=== PATIENT | female | born 1950 | race Caucasian/White ===

== ENCOUNTER 2019-10-26 18:54 | Emergency (ER) | payer MEDICARE, OTHER ==
[~2019-10-26] VITALS: Ht 172.7 cm; Wt 90.7 kg
--- OUTSIDE RECORDS SUMMARY | ~2019-10-26 | XMS | Clinical Summary ---
Demographics + + + | Address | [address] | | | [place] [address] | + + + | Home Phone | | + + + | Preferred Language | Unknown | + + + | Marital Status | | + + + | Alevism Affiliation | Unknown | + + + | Race | Unknown | + + + | Ethnic Group | Unknown | + + + Author + + + | Author | [facility] | | | and [place] | + + + | Organization | [facility] | | | and [place] | + + + | Address | Unknown | + + + | Phone | Unavailable | + + + Support + + +---------+ + | Name | Relationship | Address | Phone | + + +---------+ + | Ralph Cintron | ECON | Unknown | | + + +---------+ + Care Team Providers + +------+ + | Care Career Information Specialist Name | Role | Phone | + +------+ + | Lai Ibarra DO | PCP | | + +------+ + Allergies No Known Allergies Medications + + + +---------+------+------+-------+ | Medication | Sig | Dispensed | Refills | Star | End | Statu | | | | | | t | Date | s | | | | | | Date | | | + + + +---------+------+------+-------+ | sertraline | | | 0 | 10/0 | | Activ | | (ZOLOFT) 100 mg | | | | 4/20 | | e | | tablet | | | | 15 | | | + + + +---------+------+------+-------+ | BYSTOLIC 10 MG | | | 0 | 10/0 | | Activ | | tablet | | | | 5/20 | | e | | | | | | 15 | | | + + + +---------+------+------+-------+ | atorvaSTATin | | | 0 | 08/0 | | Activ | | (LIPITOR) 10 mg | | | | 5/20 | | e | | tablet | | | | 15 | | | + + + +---------+------+------+-------+ | | | | 0 | 07/1 | | Activ | | HYDROcodone-acetamin | | | | 0/20 | | e | | ophen (NORCO) 10-325 | | | | 15 | | | | mg per tablet | | | | | | | + + + +---------+------+------+-------+ | ibuprofen (ADVIL) | Advil 200 mg tablet | | 0 | | | Activ | | 200 mg tablet | Take 1 tablet every | | | | | e | | | 6 hours by oral | | | | | | | | route. OTC PRN AD | | | | | | + + + +---------+------+------+-------+ | estrogens, | Apply 1gm to vagina | 30 g | 3 | 10/0 | | Activ | | conjugated, | daily x 2 weeks then | | | 9/20 | | e | | (PREMARIN) 0.625 | 1gm once weekly | | | 18 | | | | mg/g vaginal cream | | | | | | | + + + +---------+------+------+-------+ Active Problems + + + | Problem | Noted Date | + + + | Abnormal weight gain | 08/17/2018 | + + + | Bursitis of knee | 08/17/2018 | + + + | Chronic pain | 08/17/2018 | + + + | Fatigue | 08/17/2018 | + + + | Hallux valgus with bunions | 08/17/2018 | + + + | Hand pain | 08/17/2018 | + + + | Second degree burn of forearm | 08/17/2018 | + + + | Snapping thumb syndrome | 08/17/2018 | + + + | Open wound of finger | 08/17/2018 | + + + | Stress | 08/24/2013 | + + + | Bunion | 03/23/2013 | + + + | Chronic interstitial cystitis | 01/24/2013 | + + + | Pyuria | 12/09/2012 | + + + | Arthritis of knee | 09/22/2012 | + + + | Vitamin D deficiency | 06/03/2012 | + + + | Neck sprain | 03/23/2012 | + + + | Neck pain | 03/23/2012 | + + + | Painful mouth | 03/23/2012 | + + + | Allergic rhinitis due to pollen | 06/19/2011 | + + + | Knee pain | 05/31/2010 | + + + | Diarrhea | 01/30/2010 | + + + | Female stress incontinence | 12/12/2009 | + + + | Dysuria | 10/22/2009 | + + + | Osteoarthrosis | 09/20/2009 | + + + | Hyperhidrosis | 04/18/2009 | + + + | Menopausal symptom | 04/18/2009 | + + + | Benign hypertension | 03/20/2009 | + + + | Generalized anxiety disorder | 03/20/2009 | + + + | Irritable bowel syndrome | 03/20/2009 | + + + | Mixed hyperlipidemia | 03/20/2009 | + + + | Insomnia | 03/20/2009 | + + + | Urinary tract infectious disease | 03/20/2009 | + + + Family History + + +------+ + | Medical History | Relation | Name | Comments | + + +------+ + | Multiple sclerosis | Mother | | | + + +------+ + | Diabetes | Sister | | | + + +------+ + | Prostate cancer | Neg Hx | | | + + +------+ + + +------+ + + | Relation | Name | Status | Comments | + +------+ + + | Daughter | | Alive | | + +------+ + + | Father | | | | + +------+ + + | Mother | | | | + +------+ + + | Sister | | Alive | | + +------+ + + Social History + +-------+ +--------+------+ | Tobacco Use | Types | Packs/Day | Years | Date | | | | | Used | | + +-------+ +--------+------+ | Never Smoker | | | | | + +-------+ +--------+------+ + +---+---+---+ | Smokeless Tobacco: | | | | | Never Used | | | | + +---+---+---+ + + +---------+ + | Alcohol Use | Drinks/Week | oz/Week | Comments | + + +---------+ + | No | | | | + + +---------+ + + + + | Sex Assigned at | Date Recorded | | | | + + + | Not on file | | + + + + + + + | Job Start Date | Occupation | Industry | + + + + | Not on file | Not on file | Not on file | + + + + + + + + | Travel History | Travel Start | Travel End | + + + + + + | No recent travel history available. | + + Last Filed Vital Signs + + + + + | Vital Sign | Reading | Time Taken | Comments | + + + + + | Blood Pressure | 140/80 | 01/05/2019 3:30 PM | | | | | PST | | + + + + + | Pulse | 64 | 01/05/2019 3:30 PM | | | | | PST | | + + + + + | Temperature | 36.3 C (97.4 F) | 08/22/2015 2:19 PM | | | | | PDT | | + + + + + | Respiratory Rate | 14 | 01/05/2019 3:30 PM | | | | | PST | | + + + + + | Oxygen Saturation | - | - | | + + + + + | Inhaled Oxygen | - | - | | | Concentration | | | | + + + + + | Weight | 97.4 kg (214 lb 11.7 | 01/05/2019 3:30 PM | | | | oz) | PST | | + + + + + | Height | 172.7 cm (5' 8") | 01/05/2019 3:30 PM | | | | | PST | | + + + + + | Body Mass Index | 32.65 | 01/05/2019 3:30 PM | | | | | PST | | + + + + + Plan of Treatment + + + + + | Health Maintenance | Due Date | Last Done | Comments | + + + + + | Hepatitis C | | | | | Screening | 2 | | | + + + + + | Vaccine: | | | | | Dtap/Tdap/Td (1 - | 1 | | | | Tdap) | | | | + + + + + | Colorectal Cancer | | | | | Screening | 2 | | | | (Colonoscopy) | | | | + + + + + | Vaccine: Zoster (1 | | | | | of 2) | 2 | | | + + + + + | Breast Cancer | | | | | Screening | 7 | | | + + + + + | Adult Annual | | | | | Wellness Visit | 5 | | | + + + + + | Vaccine: | | | | | Pneumococcal 65+ (1 | 7 | | | | of 2 - PCV13) | | | | + + + + + | Vaccine: Influenza | | | | | (#1) | 9 | | | + + + + + Results Not on filefrom Last 3 Months Insurance + +--------+ +--------+ +---------+--------+ | Payer | Benefi | Subscriber | Effect | Phone | Address | Type | | | t Plan | ID | aman | | | | | | / | | Dates | | | | | | Group | | | | | | + +--------+ +--------+ +---------+--------+ | MEDICARE | MEDICA | [id number] | 03/09/20 | [phone] | | Medica | | | RE | | 17-Pre | 5 | | re | | | PART A | | sent | | | | | | AND B | | | | | | + +--------+ +--------+ +---------+--------+ | [employer] [employer] | [employer] | [id number] | | | | Indemn | | | PEDERSEN | | 018-Pr | | | ity | | | LIFE | | esent | | | | | | MDCR | | | | | | | | SUPPL | | | | | | + +--------+ +--------+ +---------+--------+ + +--------+ +--------+ + + | Guarantor Name | Accoun | Relation to | Date | Phone | Billing Address | | | t Type | Patient | of | | | | | | | | | | + +--------+ +--------+ + + | Karissa Cintron | Person | Self [birth year] | [address] | | | al/Fam | | 1950 | [phone] | [place] [address] | | | [place] | | | 0 (Home) | | + +--------+ +--------+ + + Advance Directives + + + + + | Type | Date Recorded | Patient | Explanation | | | | 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
--- OUTSIDE RECORDS SUMMARY | ~2019-10-26 | XMS | Encounter Summary ---
Demographics + + + | Address | [address] | | | [place] [address] | + + + | Home Phone | | + + + | Preferred Language | Unknown | + + + | Marital Status | | + + + | Mormon Affiliation | Unknown | + + + | Race | Unknown | + + + | Ethnic Group | Unknown | + + + Author + + + | Author | [facility] | | | and [place] | + + + | Organization | [facility] | | | and [place] | [...] Team Providers + +------+ + | Care Grief Counselor Name | Role | Phone | + +------+ + PCP | Unavailable | + +------+ + Encounter Details +--------+ + + + + | Date | Type | Department | Care Team | Description | +--------+ + + + + | 06/07/ | Hospital | [facility] | | | | 2002 | Encounter | MED CTR XRAY [address] | | | | | | [address] [place] | | | | | | [place] [address] | | | | | | [phone] | | | +--------+ + + + + Social History + +-------+ +--------+------+ | Tobacco Use | Types | Packs/Day | Years | Date | | | | | Used | | + +-------+ +--------+------+ | Never Assessed | | | | | + +-------+ +--------+------+ + + + | Sex Assigned at [...] recent travel history available. | + + documented as of this encounter Plan of Treatment Not on filedocumented as of this encounter Visit Diagnoses Not on filedocumented in this encounter"
--- OUTSIDE RECORDS SUMMARY | ~2019-10-26 | XMS | Encounter Summary ---
Demographics + + + | Address | [address] | | | [place] [address] | + + + | Home Phone | | + + + | Preferred Language | Unknown | + + + | Marital Status | | + + + | Bahai Affiliation | Unknown | + + + | Race | Unknown | + + + | Ethnic Group | Unknown | + + + Author + + + | Author | [facility] | | | and [place] | + + + | Organization | [facility] | | | and [place] [...] Team Providers + +------+ + | Care Brick Wheeler Name | Role | Phone | + +------+ + PCP | Unavailable | + +------+ + Encounter Details +--------+ + + + + | Date | Type | Department | Care Team | Description | +--------+ + + + + | 06/21/ | Hospital | [facility] | | | | 2001 | Encounter | MED [facility] | | | | | | [address] | | | | | | [place] | | | | | | [address] | | | | | | [phone] | | | +--------+ + + + [...]
--- OUTSIDE RECORDS SUMMARY | ~2019-10-26 | XMS | Encounter Summary ---
Demographics + + + | Address | [address] | | | [place] [address] | + + + | Home Phone | | + + + | Preferred Language | Unknown | + + + | Marital Status | | + + + | Jainism Affiliation | Unknown | + + + | Race | Unknown | + + + | Ethnic Group | Unknown | + + + Author + + + | Author | [facility] | | | and [place] | + + + | Organization | [facility] | | | and [place] | [...] Team Providers + +------+ + | Care Utility Operator Name | Role | Phone | + +------+ + | Lai Ibarra DO | PCP | | + +------+ + Reason for Visit + + + | Reason | Comments | + + + | Urinary Tract | | | Infection | | + + + Evaluate & Treat (Routine) +--------+--------+ + + + + | Status | Reason | Specialty | Diagnoses / | Referred By | Referred To | | | | | Procedures | Contact | Contact | +--------+--------+ + + + + | Closed | | Urology | Diagnoses | [facility], | [facility] | | | | | Urinary | Lai Brennan DO | Urology [address] | | | | | tract | [address] [address] | | | | | infection | [address] | [place], | | | | | | [address] | [place] [address] | | | | | | [address] | Phone: | | | | | | [place], [place] | [phone] | | | | | | [address] | Fax: | | | | | | Phone: | [phone] | | | | | | [phone] | | | | | | | Fax: | | | | | | | [phone] | | +--------+--------+ + + + + Encounter Details +--------+---------+ + + + | Date | Type | Department | Care Team | Description | +--------+---------+ + + + | 08/17/ | Office | [facility] | Cole Her | Urinary tract | | 2018 | Visit | [address] | MD Claudia [address] | infection without | | | | [place], [place] | [place], [place] | hematuria, site | | | | [address] | [address] | unspecified (Primary | | | | [phone] | | Dx); Recurrent UTI; | | | | | | Urge incontinence; | | | | | | Stress incontinence | +--------+---------+ + + + Social History + +-------+ [...] + + documented as of this encounter Last Filed Vital Signs + + + + + | Vital Sign | Reading | Time Taken | Comments | + + + + + | Blood Pressure | 148/70 | 08/17/2018 10:58 AM | | | | | PDT | | + + + + + | Pulse | 86 | 08/17/2018 10:58 AM | | | | | PDT | | + + + + + | Temperature | - | - | | + + + + + | Respiratory Rate | 18 | 08/17/2018 10:58 AM | | | | | PDT | | + + + + + | Oxygen Saturation | - | - | | + + + + + | Inhaled Oxygen | - | - | | | Concentration | | | | + + + + + | Weight | 96.4 kg (212 lb 8.4 | 08/17/2018 10:58 AM | | | | oz) | PDT | | + + + + + | Height | 172.7 cm (5' 8") | 08/17/2018 10:58 AM | | | | | PDT | | + + + + + | Body Mass Index | 32.31 | 08/17/2018 10:58 AM | | | | | PDT | | + + + + + documented in this encounter Progress Notes Cole Her MD - 08/17/2018 11:30 AM PDTFormatting of this note might be different f rom the original. Chief Complaint Patient presents with Urinary Tract Infection HPI Karissa Cintron is a 68 y.o. female patient of Lai Ibarra, DO here today for evaluati on of UTI. "off and on bladder infection for most of my life" "I have not been on the right antibiotic most of the time" Several weeks noticed "muck" in her urine, smelly urine, maybe not feeling well Initially started on amoxicillin, but really did not have much improvement, then later star raulito on Augmentin, this really did not help and then started on Levaquin and symptoms then im proved Abx usually take several days before symptoms improve Had some type of sling placed for prolapsed bladder. She was not really having any urinary symptoms at that time, underwent hysterectomy for heavy periods and is not really sure why s he underwent "bladder sling" LUTS: sense of incomplete bladder emptying, Incontinence: mixed, stress predominate No gross hematuria, no dysuria Has not been checked for DM in the last 2 year, has poor diet and obese, Assessment Karissa was seen today for urinary tract infection. Diagnoses and all orders for this visit: Urinary tract infection without hematuria, site unspecified - POCT Urinalysis Dipstick Automated Recurrent UTI Urge incontinence Stress incontinence Other orders - estrogens, conjugated, (PREMARIN) 0.625 mg/g vaginal cream; Apply 1gm to vagina daily x 2 weeks then 1gm once weekly Plan Limited records available. We'll look for additional records regarding urine cultures and antibiotics used to treat urinary tract infections. We discussed that it is important for patient's with recurrent urinary tract infections to obtain urine cultures to determine if antibiotics are needed and if so which antibiotic woul d be most appropriate. In patients with a history of contaminated urine samples or if there are significant epithelial cells seen patients will require catheterized samples. We discussed the importance of good antibiotics stewardship. It is fairly common for post menopausal woman to have asymptomatic bacteriuria. If early symptoms of UTI are smelly urin e or cloudy urine then you probably don't need treatment as these are poor indicators for i nfection. We discussed that with chronic antibiotic use, we interfere with the gut microbio logy as well as breed bacteria that are resistant to oral antibiotics. We then briefly discussed ways to decrease her risk of urinary tract infections. There are several [id number] medications that can decrease her risk of infection. These includ e: D-mannose, probiotics, cranberry pills, lactoferrin, bio defense. We then discussed the role of methenamine and finally the role of estrogen cream. Out of all of the treatment opt ions estrogen cream has been shown to be the most effective. He can decrease a woman's risk for infection by 50%. Stress incontinence: discussed conservative measures including vigorous exercise, weight lo ss and pelvic physical therapy to strengthen pelvic floor. We then discussed sling surgery including mesh mid urethral sling and autologous rectus fascial sling. We discussed the pro s of the mesh sling including: A relatively easier recovery, long-lasting ,shorter surgery. Cons for mesh sling include: Chronic pain mesh erosion, recurrent urinary tract infection, recurrence of incontinence, urinary retention, painful sexual intercourse, fistula and need for revision surgery. Pros for autologous rectus fascial sling include: No risk of material rejection using her own tissue relatively no risk of chronic pain. The cons for autologous rectus fascial sling include: A bigger surgery and longer time spent in the hospital, longe r recovery and not as durable as the mesh sling. Urge incontinence: discussed conservative management including, weight loss, diet changes, fluid management. We then discussed medical management including anticholenergics. We disc ussed side effects including dry mouth, constipation, blurry vision and mental status change s. We then discussed bladder botox as well as percutaneous tibial nerve stimulation (PTNS) Patient was given a prescription for estrogen. At this time she does not seek treatment fo r the incontinence. We'll continue to monitor. She will follow-up in 4 months for reevalua tion. Past Medical History Past Medical History: Diagnosis Date Allergic rhinitis due to pollen 06/19/2011 Hyperlipidemia Hypertension Urinary tract infection Past Surgical History Past Surgical History: Procedure Laterality Date APPENDECTOMY BLADDER SUSPENSION 1994 SECTION, CLASSIC COLONOSCOPY HYSTERECTOMY 1994 Family History: Family History Problem Relation Age of Onset Multiple sclerosis Mother Diabetes Sister Prostate cancer Neg Hx Social History: Social History Social History Marital status: Spouse name: N/A Number of children: N/A Years of education: N/A Social History Main Topics Smoking status: Never Smoker Smokeless tobacco: Never Used Alcohol use No Drug use: No Sexual activity: Not Currently Other Topics Concern None Social History Narrative None No Known Allergies Medications: Current Outpatient Prescriptions: atorvaSTATin (LIPITOR) 10 mg tablet, , Disp: , Rfl: BYSTOLIC 10 MG tablet, , Disp: , Rfl: estrogens, conjugated, (PREMARIN) 0.625 mg/g vaginal cream, Apply 1gm to vagina daily x 2 weeks then 1gm once weekly, Disp: 30 g, Rfl: 3 HYDROcodone-acetaminophen (NORCO) 10-325 mg per tablet, , Disp: , Rfl: ibuprofen (ADVIL) 200 mg tablet, Advil 200 mg tablet Take 1 tablet every 6 hours by o ral route. OTC PRN AD, Disp: , Rfl: sertraline (ZOLOFT) 100 mg tablet, , Disp: , Rfl: 0 ROS Objective BP 148/70 | Pulse 86 | Resp 18 | Ht 1.727 m (5' 8") | Wt 96.4 kg (212 lb 8.4 oz) | Leah astfeeding? No | BMI 32.31 kg/m General Appearance: Alert, cooperative, no distress, appears stated age, obese Head: Normocephalic, without obvious abnormality, atraumatic Eyes: conjunctiva/corneas clear, EOM's intact Throat: Lips, mucosa, and tongue normal; no gross deformities, mmm Neck: Supple, symmetrical, no adenopathy Lungs: Regular, unlabored breathing MS No CVA tenderness, no spinal tenderness, no scoliosis present Abdomen: Soft, non-tender, no masses Extremities: Extremities normal, atraumatic, no cyanosis, clubbing,mild LE edema seen Pulses: Radial pulses 2+ and symmetric Skin: Warm and dry Lymph nodes: Cervical and supraclavicular nodes normal Neurologic: Gait normal, CN 2-12 grossly intact; Strength and sensation grossly normal in b ilateral upper and lower extremities Data: TX 78 mL-slightly elevated, but not worrisome REVIEW OF SYSTEMS: [] Marked All Negative Constitutional Symptoms: [] Fever [] Chills [] Headache [] Change in appetite [] Change in weight [] Change in energy [] Other: Neurological: [] Tremors [] Dizzy Spells [] Numbness/Tingling [] Seizures [] Other: Endocrine: [] Excessive thirst [] Too hot [] Too cold [] Tired/Sluggish Gastrointestinal: [x] Abdominal pain [] Nausea/Vomiting [] Indigestion/heartburn [] Change in sto ol size [] Change in stool shape [] Change in stool color [] Pain with swallowin g [] Other: Cardiovascular: [] Chest Pain [] Rapid heart rate [x] High blood pressure [] Other: Integumentary: [] Skin rash [] Boils [] Persistent itch [] Other: Musculoskeletal: [] Neck Pain [x] Joint swelling/pain [x] Back pain [] Bone pain [] Other: Respiratory: [] Wheezing [] Frequent cough [] Shortness of breath [] Other: Hematologic/Lymphatic: [] Swollen glands [] Blood clotting issues [] Prior blood transfusions []Other: Psychologic: Are you generally satisfied with your life? no Do you feel severely depressed? no Have you considered suicide? no Habits: Do you smoke? no Results for orders placed or performed in visit on 08/17/18 POCT Urinalysis Dipstick Automated Result Value Ref Range Color, UA, POC Gely (A) Yellow, Light Yellow Clarity, UA, POC Clear Glucose, UA, POC Negative Negative Bilirubin, UA, POC Negative Negative Ketones, UA, POC Negative Negative, 100 mg/dL Specific [place], UA, POC 1.015 1.001 - 1.030 Blood, UA, POC Negative Negative pH, UA, POC 7.5 5.0, 6.0, 7.0, 8.0, 5.5, 6.5, 7.5 Protein, UA, POC Negative Negative Urobilinogen, UA, POC 0.2 mg/dL 0.2, Negative, Normal, < 0.2 mg/dL, 1 mg/dL, < 0.2 E.U./dl , 1.0 E.U./dL, 0.2 mg/dL Nitrite, UA, POC Negative Negative Leukocyte Esterase, UA, POC Negative Negative RED SUB UA ICTOTEST Negative REMARK No results found for: JOSE ARMANDO Ibarra DO's notes were reviewed in clinic today. Return in about 4 months (around 12/18/2018).. This document was generated in part using voice recognition software. Frequent wrong word or sound-alike substitutions may have occurred due to the inherent limitations of the voice recognition software. Although I have attempted to edit the content, I have not thoroughly proofread this note, and cane packer errors are very likely to occur. CC: Lai Ibarra DO documented in this encounter Plan of Treatment Not on filedocumented as of this encounter Procedures + +--------+ + + + | Procedure Name | Priori | Date/Time | Associated Diagnosis | Comments | | | ty | | | | + +--------+ + + + | POCT URINALYSIS, | Routin | 08/17/2018 | Urinary tract | Results for this | | AUTO WITH CONF | e | 11:20 AM | infection without | procedure are in the | | | | PDT | hematuria, site | results section. | | | | | unspecified | | + +--------+ + + + | DIAGNOSTIC REPORT - | | 08/17/2018 | | Results for this | | EXTERNAL SCAN | | 12:00 AM | | procedure are in the | | | | PDT | | results section. | + +--------+ + + + | LABS - EXTERNAL SCAN | | 12/15/2017 | | Results for this | | | | 12:00 AM | | procedure are in the | | | | PST | | results section. | + +--------+ + + + documented in this encounter Results POCT Urinalysis Dipstick Automated (08/17/2018 11:20 AM PDT) + + + + + + | Component | Value | Ref Range | Performed | Pathologist | | | | | At | Signature | + + + + + + | Color, UA, | Gely (A) | Yellow, Light | | | | POC | | Yellow | | | + + + + + + | Clarity, | Clear | | | | | UA, POC | | | | | + + + + + + | Glucose, | Negative | Negative | | | | UA, POC | | | | | + + + + + + | Bilirubin, | Negative | Negative | | | | UA, POC | | | | | + + + + + + | Ketones, | Negative | Negative, 100 | | | | UA, POC | | mg/dL | | | + + + + + + | Specific | 1.015 | 1.001 - 1.030 | | | | [place], | | | | | | UA, POC | | | | | + + + + + + | Blood, UA, | Negative | Negative | | | | POC | | | | | + + + + + + | pH, UA, POC | 7.5 | 5.0, 6.0, 7.0, | | | | | | 8.0, 5.5, 6.5, | | | | | | 7.5 | | | + + + + + + | Protein, | Negative | Negative | | | | UA, POC | | | | | + + + + + + | Urobilinoge | 0.2 mg/dL | 0.2, Negative, | | | | n, UA, POC | | Normal, < 0.2 | | | | | | mg/dL, 1 mg/dL, | | | | | | < 0.2 E.U./dl, | | | | | | 1.0 E.U./dL, | | | | | | 0.2 mg/dL | | | + + + + + + | Nitrite, | Negative | Negative | | | | UA, POC | | | | | + + + + + + | Leukocyte | Negative | Negative | | | | Esterase, | | | | | | UA, POC | | | | | + + + + + + | Reducing | | | | | | Substances, | | | | | | Urine | | | | | + + + + + + | Ictotest | | Negative | | | + + + + + + | Remark | | | | | + + + + + + + + | Specimen | + + | Urine | + + DIAGNOSTIC REPORT - EXTERNAL SCAN (08/17/2018 12:00 AM PDT) + + + | Narrative | Performed At | + + + | Ordered by an | | | unspecified provider. | | + + + LABS - EXTERNAL SCAN (12/15/2017 12:00 AM PST) + + + | Narrative | Performed At | + + + | Ordered by an | | | unspecified provider. | | + + + documented in this encounter Visit Diagnoses + + | Diagnosis | + + | Urinary tract infection without hematuria, site unspecified - Primary | + + | Recurrent UTI Urinary tract infection, site not specified | + + | Urge incontinence | + + | Stress incontinence | + + documented in this encounter
--- OUTSIDE RECORDS SUMMARY | ~2019-10-26 | XMS | Clinical Summary ---
Demographics + + + | Address | [address] | | | [place] [address] | + + + | Home Phone | | + + + | Preferred Language | Unknown | + + + | Marital Status | Unknown | + + + | Christian Affiliation | Unknown | + + + | Race | Unknown | + + + | Ethnic Group | Unknown | + + + Author + + + | Author | [facility] (Historical as of | | | 06-25-19) | + + + | Organization | [facility] (Historical as of | | | 06-25-19) | + + + | Address | Unknown | + + + | Phone | Unavailable | + + + Care Team Providers + +------+ + | Care Licensed Reactor Operator Name | Role | Phone | + +------+ + | Renata Rico MD | PP | | + +------+ + Allergies Not on File Current Medications Not on file Active Problems Not on file Social History + +-------+ +--------+------+ | Tobacco [...] on file | | + + + Plan of Treatment Not on file Results Not on filefrom Last 3 Months Insurance + +--------+ +------+-------+ + | Payer | Benefi | Subscriber | Type | Phone | Address | | | t Plan | ID | | | | | | / | | | | | | | Group | | | | | + +--------+ +------+-------+ + | MEDICARE | MEDICA | [id number] | | | [address] | | | [place] | | | | [place] [address] | | | IP-OP | | | | | + +--------+ +------+-------+ + + +--------+ +--------+ + + | Guarantor Name | [employer] | Relation to | Date | Phone | Billing Address | | | t Type | Patient | of | | | | | | | | | | + +--------+ +--------+ + + | JACOB CINTRON | Person | Self [birth year] | Home: | [address] | | | al/Fam | | 1949 | [phone] [place] [address] | | | [place] | | | [phone] | | + +--------+ +--------+ + +"
--- OUTSIDE RECORDS SUMMARY | ~2019-10-26 | XMS | Encounter Summary ---
Demographics + + + | Address | [address] | | | [place] [address] | + + + | Home Phone | | + + + | Preferred Language | Unknown | + + + | Marital Status | | + + + | Yazidism Affiliation | Unknown | + + + | Race | Unknown | + + + | Ethnic Group | Unknown | + + + Author + + + | Author | [facility] | | | and [place] | + + + | Organization | [facility] | | | and [place] [...] Team Providers + +------+ + | Care Hand Stitcher Name | Role | Phone | + +------+ + | Lai Ibarra DO | PCP | | + +------+ + Reason for Visit + + + | Reason | Comments | + + + | Appointment | | + + + Encounter Details +--------+ + + + + | Date | Type | Department | Care Team | Description | +--------+ + + + + | 10// | Telephone | [facility] | Cole Her | Appointment | | 2018 | | [address] | MD Claudia [address] | | | | | [place], [place] | [place], [place] | | | | | [address] | [address] | | | | | [phone] | | | +--------+ + + + [...]
--- OUTSIDE RECORDS SUMMARY | ~2019-10-26 | XMS | Encounter Summary ---
Demographics + + + | Address | [address] | | | [place] [address] | + + + | Home Phone | | + + + | Preferred Language | Unknown | + + + | Marital Status | | + + + | Rastafari Affiliation | Unknown | + + + | Race | Unknown | + + + | Ethnic Group | Unknown | + + + Author + + + | Author | [facility] | | | and [place] | + + + | Organization | [facility] | | | and [place] [...] Team Providers + +------+ + | Care Project Director Name | Role | Phone | + +------+ + | Lai Ibarra DO | PCP | | + +------+ + Encounter Details +--------+ + + + + | Date | Type | Department | Care Team | Description | +--------+ + + + + | 08/21/ | Orders Only | [facility] | Asif Raygoza, | Bilateral knee pain | | 2015 | | ORTHOPEDIC SURGERY | MD [address] | (Primary Dx) | | | | [address] | [place] | | | | | [place] | [address] | | | | | [address] | | | | | | [phone] | | | +--------+ + + + [...] Not on filedocumented as of this encounter Results XR Knee Right 1 - 2 Vw (08/22/2015 2:10 PM PDT) + + | Specimen | + + | | + + + + + | Narrative | Performed At | + + + | XR KNEE RIGHT 1 - 2 VW 08/22/2015 2:10 PM HISTORY: bilateral | [facility] | | knee pain. COMPARISON: None. FINDINGS: The right knee shows | [facility] | | no acute findings. Moderate lateral compartment joint space loss is | [facility] | | present. There is mild medial compartment joint space loss. Mild | - IMAGING | | lateral patellofemoral compartment joint space loss is observed. | | | There are moderate size osteophytes of the lateral and patellofemoral | | | compartments. Bone mineralization is normal. There is no joint | | | effusion. Soft tissues are unremarkable. The left knee shows no | | | acute findings. There is mild medial joint space loss. Moderate to | | | severe lateral patellofemoral compartment joint is loss is present. | | | There are small osteophytes of the lateral compartment. Moderate | | | osteophytes are noted of the patellofemoral compartment. Bone | | | mineralization is normal. There is a small joint effusion. Soft | | | tissues are unremarkable. IMPRESSION - Degenerative changes of | | | the bilateral knees including moderate lateral joint space loss on | | | the right side and moderate to severe lateral patellofemoral joint | | | space loss on the left side. Dictated and Signed by: Imtiaz Agosto | | | Electronically signed: 08/22/2015 4:38 PM | | + + + + + | Procedure Note | + + | Nam, Rad Results In - 08/22/2015 4:41 PM PDT XR KNEE RIGHT 1 - 2 VW 08/22/2015 2:10 | | PMHISTORY: bilateral knee pain.COMPARISON: None.FINDINGS:The right knee shows no acute | | findings. Moderate lateral compartment joint spaceloss is present. There is mild medial | | compartment joint space loss. Mild lateralpatellofemoral compartment joint space loss is | | observed. There are moderate sizeosteophytes of the lateral and patellofemoral | | compartments. Bone mineralizationis normal. There is no joint effusion. Soft tissues are | | unremarkable.The left knee shows no acute findings. There is mild medial joint space | | loss.Moderate to severe lateral patellofemoral compartment joint is loss is | | present.There are small osteophytes of the lateral compartment. Moderate osteophytes | | arenoted of the patellofemoral compartment. Bone mineralization is normal. There benitez | | small joint effusion. Soft tissues are unremarkable.IMPRESSION -Degenerative changes of | | the bilateral knees including moderate lateral jointspace loss on the right side and | | moderate to severe lateral patellofemoral jointspace loss on the left side.Dictated and | | Signed by: Imtiaz Agosto MD Electronically signed: 08/22/2015 4:38 PM | |Moderate to severe lateral patellofemoral compartment joint is loss is present. | |There are small osteophytes of the lateral compartment. Moderate osteophytes are | |noted of the patellofemoral compartment. Bone mineralization is normal. There is | |a small joint effusion. Soft tissues are unremarkable. | | | |IMPRESSION - | |Degenerative changes of the bilateral knees including moderate lateral joint | |space loss on the right side and moderate to severe lateral patellofemoral joint | |space loss on the left side. | | | |Dictated and Signed by: Imtiaz Agosto MD | | Electronically signed: 08/22/2015 4:38 PM | + + + + + + + | Performing | Address | City/State/Zipcode | Phone Number | | Organization | | | | + + + + + | [facility] | [address] | [place] | [phone] | | [facility] | | [id number] | | | - IMAGING | | | | + + + + + XR Knee Left 3 Vw (08/22/2015 2:10 PM PDT) + + | Specimen | + + | | + + + + + | Narrative | Performed At | + + + | XR KNEE LEFT 3 VW 08/22/2015 2:10 PM HISTORY: bilateral knee | [facility] | | pain. COMPARISON: None. FINDINGS: The right knee shows no | [facility] | | acute findings. Moderate lateral compartment joint space loss is | [facility] | | present. There is mild medial compartment joint space loss. Mild | - IMAGING | | lateral patellofemoral compartment joint space loss is observed. | | | There are moderate size osteophytes of the lateral and patellofemoral | | | compartments. Bone mineralization is normal. There is no joint | | | effusion. Soft tissues are unremarkable. The left knee shows no | | | acute findings. There is mild medial joint space loss. Moderate to | | | severe lateral patellofemoral compartment joint is loss is present. | | | There are small osteophytes of the lateral compartment. Moderate | | | osteophytes are noted of the patellofemoral compartment. Bone | | | mineralization is normal. There is a small joint effusion. Soft | | | tissues are unremarkable. IMPRESSION - Degenerative changes of | | | the bilateral knees including moderate lateral joint space loss on | | | the right side and moderate to severe lateral patellofemoral joint | | | space loss on the left side. Dictated and Signed by: Imtiaz Agosto, | | | Electronically signed: 08/22/2015 4:37 PM | | + + + + + | Procedure Note | + + | Nam, Rad Results In - 08/22/2015 4:40 PM PDT XR KNEE LEFT 3 VW 08/22/2015 2:10 PM | | | | HISTORY: bilateral knee pain. | | | | COMPARISON: None. | | | | FINDINGS: | | The right knee shows no acute findings. Moderate lateral compartment joint space | | loss is present. There is mild medial compartment joint space loss. Mild lateral | | patellofemoral compartment joint space loss is observed. There are moderate size | | osteophytes of the lateral and patellofemoral compartments. Bone mineralization | | is normal. There is no joint effusion. Soft tissues are unremarkable. | | | | The left knee shows no acute findings. There is mild medial joint space loss. | | Moderate to severe lateral patellofemoral compartment joint is loss is present. | | There are small osteophytes of the lateral compartment. Moderate osteophytes are | | noted of the patellofemoral compartment. Bone mineralization is normal. There is | | a small joint effusion. Soft tissues are unremarkable. | | | | IMPRESSION - | | Degenerative changes of the bilateral knees including moderate lateral joint | | space loss on the right side and moderate to severe lateral patellofemoral joint | | space loss on the left side. | | | | Dictated and Signed by: Imtiaz Agosto MD | | Electronically signed: 08/22/2015 4:37 PM | + + + + + + + | Performing | Address | City/State/Zipcode | Phone Number | | Organization | | | | + + + + + | [facility] | [address] | [place] | [phone] | | [facility] | | [address] | | | - IMAGING | | | | + + + + + documented in this encounter Visit Diagnoses + + | Diagnosis | + + | Bilateral knee pain - Primary Pain in joint, lower leg | + + documented in this encounter"
--- OUTSIDE RECORDS SUMMARY | ~2019-10-26 | XMS | Encounter Summary ---
Demographics + + + | Address | [address] | | | [place] [address] | + + + | Home Phone | | + + + | Preferred Language | Unknown | + + + | Marital Status | | + + + | Baptist Affiliation | Unknown | + + + | Race | Unknown | + + + | Ethnic Group | Unknown | + + + Author + + + | Author | [facility] | | | and [place] | + + + | Organization | [facility] | | | and [place] [...] Team Providers + +------+ + | Care Mental Health Nurse Practitioner Name | Role | Phone | + +------+ + PCP | Unavailable | + +------+ + Encounter Details +--------+ + + + + | Date | Type | Department | Care Team | Description | +--------+ + + + + | 04/13/ | Hospital | [facility] | Kiran Martinez, | | | 1999 - | Encounter | [facility] | [address] | | | | | [facility] [address] | [address] | | | 04/16/ | | [place], | [place] [address] | | | 1997 | | [place] [address] | [phone] | | | | | [phone] | | | +--------+ + + + [...]
--- OUTSIDE RECORDS SUMMARY | ~2019-10-26 | XMS | Encounter Summary ---
Demographics + + + | Address | [address] | | | [place] [address] | + + + | Home Phone | | + + + | Preferred Language | Unknown | + + + | Marital Status | | + + + | Taoism Affiliation | Unknown | + + + | Race | Unknown | + + + | Ethnic Group | Unknown | + + + Author + + + | Author | [facility] | | | and [place] | + + + | Organization | [facility] | | | and [place] [...] Team Providers + +------+ + | Care Typewriter Aligner Name | Role | Phone | + [...] Dx) | | | | [address] | [place] | | | | | [place] | [address] | | | | | [address] | | | | | | [phone] | | | +--------+ + + + [...] | [facility] | [address] | [place] | [phone] | | [facility] | | [address] | | | - IMAGING | | [...] ST. | [address] | [place] | [phone] | | [facility] | | [address] | | | - IMAGING | | | | + + + + + documented in this encounter Visit Diagnoses + + | Diagnosis | + + | Bilateral knee pain - Primary Pain in joint, lower leg | + + documented in this encounter"
--- OUTSIDE RECORDS SUMMARY | ~2019-10-26 | XMS | Encounter Summary ---
Demographics + + + | Address | [address] | | | [place] [address] | + + + | Home Phone | | + + + | Preferred Language | Unknown | + + + | Marital Status | | + + + | Jain Affiliation | Unknown | + + + | Race | Unknown | + + + | Ethnic Group | Unknown | + + + Author + + + | Author | [facility] | | | and [place] | + + + | Organization | [facility] | | | and [place] [...] Team Providers + +------+ + | Care Switch Repairer Name | Role | Phone | + +------+ + | Lai Ibarra DO | PCP | | + +------+ + Encounter Details +--------+ + + + + | Date | Type | Department | Care Team | Description | +--------+ + + + + | 08/22/ | [facility] | [facility] | Asif Raygoza, | Bilateral knee pain | | 2015 | Encounter | [facility] | [address] | | | | | [address] | [place] | | | | | [place] | [address] | | | | | [address] | | | | | | [phone] | | | +--------+ + + + [...] + + documented as of this encounter Medications at Time of Discharge + +-----+ +---------+ + + | Medication | Sig | Dispensed | Refills | Start | End Date | | | | | | Date | | + +-----+ +---------+ + + | atorvaSTATin | | | 0 | 08/05/20 | | | (LIPITOR) 10 mg | | | | 15 | | | tablet | | | | | | + +-----+ +---------+ + + | BYSTOLIC 10 MG | | | 0 | 08/13/20 | | | tablet | | | | 15 | | + +-----+ +---------+ + + | | | | 0 | 05/18/20 | | | HYDROcodone-acetamin | | | | 15 | | | ophen (NORCO) 10-325 | | | | | | | mg per tablet | | | | | | + +-----+ +---------+ + + | sertraline | | | 0 | 08/12/20 | | | (ZOLOFT) 100 mg | | | | 15 | | | tablet | | | | | | + +-----+ +---------+ + + | ciprofloxacin | | | 0 | 05/16/20 | | | (CIPRO) 500 mg | | | | 15 | 8 | | tablet | | | | | | + +-----+ +---------+ + + | | | | 0 | 06/29/20 | | | sulfamethoxazole-tri | | | | 15 | 8 | | methoprim (BACTRIM | | | | | | | DS) 800-160 mg per | | | | | | | tablet | | | | | | + +-----+ +---------+ + + | triazolam | | | 0 | 06/04/20 | | | (HALCION) 0.25 MG | | | | 15 | 8 | | tablet | | | | | | + +-----+ +---------+ + + documented as of this encounter Plan of Treatment Not on filedocumented as of this encounter Procedures + +--------+ + + + | Procedure Name | Priori | Date/Time | Associated Diagnosis | Comments | | | ty | | | | + +--------+ + + + | XR KNEE LEFT 3 VW | Routin | 08/22/2015 | Bilateral knee | Results for this | | | e | 2:10 PM | pain | procedure are in the | | | | PDT | | results section. | + +--------+ + + + | XR KNEE RIGHT 1 - 2 | Routin | 08/22/2015 | Bilateral knee | Results for this | | VW | e | 2:10 PM | pain | procedure are in the | | | | PDT | | results section. | + +--------+ + + + documented in this encounter Results XR Knee Right 1 [...] | [facility] | [address] | [place] | [phone] | | [facility] | | [address] | | | - IMAGING | | [...] ST. | [address] | [place] | [phone] | | [facility] | | [address] | | | - IMAGING | | | | + + + + + documented in this encounter Visit Diagnoses + + | Diagnosis | + + | Bilateral knee pain Pain in joint, lower leg | + + documented in this encounter"
--- OUTSIDE RECORDS SUMMARY | ~2019-10-26 | XMS | Encounter Summary ---
Demographics + + + | Address | [address] | | | [place] [address] | + + + | Home Phone | | + + + | Preferred Language | Unknown | + + + | Marital Status | | + + + | Hinduism Affiliation | Unknown | + + + | Race | Unknown | + + + | Ethnic Group | Unknown | + + + Author + + + | Author | [facility] | | | and [place] | + + + | Organization | [facility] | | | and [place] [...] Team Providers + +------+ + | Care Bag Bundler Name | Role | Phone | + +------+ + | Lai Ibarra DO | PCP | | + +------+ + Reason for Visit + + + | Reason | Comments | + + + | Follow-up | | + + + | Urinary Tract | | | Infection | | + + + Encounter Details +--------+---------+ + + + | Date | Type | Department | Care Team | Description | +--------+---------+ + + + | 01/05/ | Office | [facility] | Cole Her | Recurrent UTI | | 2019 | Visit | [address] | MD Claudia [address] | (Primary Dx); | | | | [place], [place] | [place] | Pyuria; Bladder | | | | [address] | [address] | pain; Dysuria | | | | [phone] | | | +--------+---------+ + + + Social History [...] encounter Progress Notes Cole Her MD - 01/05/2019 3:45 PM PSTFormatting of this note might be differ ent from the original. Chief Complaint Patient presents with Follow-up Urinary Tract Infection HPI Karissa Cintron is a 68 y.o. female patient of Lai Ibarra, DO here today for a follow up of UTI. "off and on bladder infection [...] 2 year, has poor diet and obese, Long history of ? Recurrent UTI and UTI like symptoms. Had another episode of UTI like symptoms, smelly urine, frequency, cloudy urine,a culture w as performed which was negative. Her symptoms have since resolved. During the last evaluation the patient was instructed to use estrogen cream. She has sti ll not started this prescription. Today She denies any symptoms of a urinary tract infection Assessment Karissa was seen today for follow-up and urinary tract infection. Diagnoses and all orders for this visit: Recurrent UTI Pyuria - POCT Urinalysis Dipstick Automated - Urinalysis, Microscopic Only, with Culture if Indicated - Culture, Urine Bladder pain Dysuria Plan Start estrogen cream Increase fluid intake Make sure to have a urine culture performed before being started on antibiotics. Past Medical History Past Medical History: Diagnosis Date Allergic rhinitis due to pollen 06/19/2011 Generalized anxiety disorder Hyperlipidemia Hypertension Urinary tract infection Past Surgical [...] mg tablet, , Disp: , Rfl: 0 Review of Systems Constitutional: Negative for chills and fever. Respiratory: Negative for cough and wheezing. Cardiovascular: Negative for chest pain. Gastrointestinal: Negative for vomiting. Objective BP 140/80 | Pulse 64 | Resp 14 | Ht 1.727 m (5' 8") | Wt 97.4 kg (214 lb 11.7 oz) | BM I 32.65 kg/m General Appearance: Alert, cooperative, no distress, appears stated age, obese Head: Normocephalic, without obvious abnormality, atraumatic Eyes: conjunctiva/corneas clear, EOM's intact Lungs: Regular, unlabored breathing MS No CVA [...] b ilateral upper and lower extremities Data: UT 78 mL-slightly elevated, but not worrisome Results for orders placed or performed in visit on 01/05/19 Culture, Urine Result Value Ref Range Culture >100,000 CFU/ml Lactose Fermenting Gram Negative Bacilli Urinalysis, Microscopic Only, with Culture if Indicated Result Value Ref Range WBC UA 15-25 (A) 0 - 2 /HPF RBC UA 0-2 0 - 2 /HPF SQUAMOUS EPITHELIAL UA 0-2 0 - 2 /LPF BACTERIA UA 4+ (A) Negative /HPF MUCUS UA Present (A) Negative /LPF HYALINE CASTS UA 0-2 0 - 2 /LPF URINE COMMENT Urine Culture Set Up POCT Urinalysis Dipstick Automated Result Value Ref Range Color, UA, POC Dark Yellow (A) Yellow, Light Yellow Clarity, UA, POC Slightly Cloudy Glucose, UA, POC Negative Negative Bilirubin, UA, POC Negative Negative Ketones, UA, POC Negative Negative, 100 mg/dL Specific [place], UA, POC 1.025 1.001 - 1.030 Blood, UA, POC Negative Negative pH, UA, POC 5.5 5.0, 6.0, 7.0, 8.0, 5.5, 6.5, 7.5 Protein, UA, POC Negative Negative Urobilinogen, UA, POC 0.2 0.2, Negative, Normal, < 0.2 mg/dL, 1 mg/dL, < 0.2 E.U./dl, 1.0 E.U./dL, 0.2 mg/dL Nitrite, UA, POC Positive (A) Negative Leukocyte Esterase, UA, POC Trace (A) Negative Reducing Substances, Urine Ictotest Negative Remark No results found for: JOSE ARMANDO Ibarra DO's notes were reviewed in clinic today. Return in about 3 months (around 04/04/2019).. This document was generated in part using voice recognition software. Frequent wrong word or sound-alike substitutions may have occurred due to the inherent limitations of the voice recognition software. Although I have attempted to edit the content, I have not thoroughly proofread this note, and safety deposit clerk errors are very likely to occur. CC: Lai Ibarra DO documented in this encounter Plan of Treatment Not on filedocumented as of this encounter Procedures + +--------+ + + + | Procedure Name | Priori | Date/Time | Associated Diagnosis | Comments | | | ty | | | | + +--------+ + + + | URINALYSIS, | Routin | 01/05/2019 | Pyuria | Results for this | | MICROSCOPIC ONLY, | e | 3:50 PM | | procedure are in the | | WITH CULTURE IF | | PST | | results section. | | INDICATED | | | | | + +--------+ + + + | POCT URINALYSIS, | Routin | 01/05/2019 | Pyuria | Results for this | | AUTO WITH CONF | e | 3:50 PM | | procedure are in the | | | | PST | | results section. | + +--------+ + + + | CULTURE, URINE | Routin | 01/05/2019 | Pyuria | Results for this | | | e | 3:50 PM | | procedure are in the | | | | PST | | results section. | + +--------+ + + + | IMAGING REPORT - | | 01/05/2019 | | Results for this | | EXTERNAL SCAN | | 12:00 AM | | procedure are in the | | | | PST | | results section. | + +--------+ + + + documented in this encounter Results Culture, Urine (01/05/2019 3:50 PM PST) + + + + + + | Component | Value | Ref Range | Performed | Pathologist | | | | | At | Signature | + + + + + + | Culture | >100,000 CFU/ml | | [facility] | | | | Escherichia coliComment: | | [facility] | | | | Multi-drug resistant | | MEDICAL | | | | organism found. | | CENTER - | | | | Plasmid-mediated, | | LABORATORY | | | | transmissible resistance | | | | | | mechanism detected | | | | | | (AmpC). Unusual | | | | | | resistance pattern, | | | | | | please contact infection | | | | | | control or an | | | | | | Infectious Disease | | | | | | Physician. | | | | + + + + + + | Culture | >100,000 CFU/ml | | [facility] | | | | Escherichia coliComment: | | [facility] | | | | Multi-drug resistant | | MEDICAL | | | | organism found. | | CENTER - | | | | Plasmid-mediated, | | LABORATORY | | | | transmissible resistance | | | | | | mechanism detected | | | | | | (AmpC). Unusual | | | | | | resistance pattern, | | | | | | please contact infection | | | | | | control or an | | | | | | Infectious Disease | | | | | | Physician. | | | | + + + + + + + + | Specimen | + + | Urine - Urine | | specimen obtained by | | clean catch | | procedure (specimen) | + + + + + | Narrative | Performed At | + + + | 3/2 Two different biotypes of E.coli isolated | [facility] | | | [facility] | | | [facility] | | | - LABORATORY | + + + + + +--------+ + | Organism | Antibiotic | Method | Susceptibility | + + +--------+ + | Escherichia coli | Cefazolin | | >=64 ug/mL: | | | | | Resistant | + + +--------+ + | Escherichia coli | Cefoxitin | | >=64 ug/mL: | | | | | Resistant | + + +--------+ + | Escherichia coli | Ceftazidime | | 16 ug/mL: | | | | | Intermediate | + + +--------+ + | Escherichia coli | Ceftriaxone | | 16 ug/mL: | | | | | Intermediate | + + +--------+ + | Escherichia coli | Ciprofloxacin | | 1 ug/mL: Sensitive | + + +--------+ + | Escherichia coli | Ertapenem | | <=0.5 ug/mL: | | | | | Sensitive | + + +--------+ + | Escherichia coli | Gentamicin | | <=1 ug/mL: | | | | | Sensitive | + + +--------+ + | Escherichia coli | Meropenem | | <=0.25 ug/mL: | | | | | Sensitive | + + +--------+ + | Escherichia coli | Nitrofurantoin | | <=16 ug/mL: | | | | | Sensitive | + + +--------+ + | Escherichia coli | Piperacillin + | | 8 ug/mL: Sensitive | | | Tazobactam | | | + + +--------+ + | Escherichia coli | Tobramycin | | <=1 ug/mL: | | | | | Sensitive | + + +--------+ + | Escherichia coli | Trimethoprim + | | >=320 ug/mL: | | | Sulfamethoxazole | | Resistant | + + +--------+ + | Escherichia coli | Cefazolin | | >=64 ug/mL: | | | | | Resistant | + + +--------+ + | Escherichia coli | Cefoxitin | | >=64 ug/mL: | | | | | Resistant | + + +--------+ + | Escherichia coli | Ceftazidime | | >=64 ug/mL: | | | | | Resistant | + + +--------+ + | Escherichia coli | Ceftriaxone | | 16 ug/mL: | | | | | Intermediate | + + +--------+ + | Escherichia coli | Ciprofloxacin | | 1 ug/mL: Sensitive | + + +--------+ + | Escherichia coli | Ertapenem | | <=0.5 ug/mL: | | | | | Sensitive | + + +--------+ + | Escherichia coli | Gentamicin | | <=1 ug/mL: | | | | | Sensitive | + + +--------+ + | Escherichia coli | Meropenem | | <=0.25 ug/mL: | | | | | Sensitive | + + +--------+ + | Escherichia coli | Nitrofurantoin | | <=16 ug/mL: | | | | | Sensitive | + + +--------+ + | Escherichia coli | Piperacillin + | | 8 ug/mL: Sensitive | | | Tazobactam | | | + + +--------+ + | Escherichia coli | Tobramycin | | <=1 ug/mL: | | | | | Sensitive | + + +--------+ + | Escherichia coli | Trimethoprim + | | >=320 ug/mL: | | | Sulfamethoxazole | | Resistant | + + +--------+ + + + + + + | Performing | Address | City/State/Zipcode | Phone Number | | Organization | | | | + + + + + | [facility] | [address] | [place] | [phone] | | [facility] | | [address] | | | - LABORATORY | | | | + + + + + Urinalysis, Microscopic Only, with Culture if Indicated (01/05/2019 3:50 PM PST) + + + + + + | Component | Value | Ref Range | Performed | Pathologist | | | | | At | Signature | + + + + + + | WBC UA | 15-25 (A) | 0 - 2 /HPF | [facility] | | | | | | [facility] | | | | | | MEDICAL | | | | | | CENTER - | | | | | | LABORATORY | | + + + + + + | RBC UA | 0-2 | 0 - 2 /HPF | [facility] | | | | | | [facility] | | | | | | MEDICAL | | | | | | CENTER - | | | | | | LABORATORY | | + + + + + + | SQUAMOUS | 0-2 | 0 - 2 /LPF | [facility] | | | EPITHELIAL | | | [facility] | | | [facility] | | | MEDICAL | | | | | | CENTER - | | | | | | LABORATORY | | + + + + + + | BACTERIA UA | 4+ (A) | Negative /HPF | [facility] | | | | | | [facility] | | | | | | MEDICAL | | | | | | CENTER - | | | | | | LABORATORY | | + + + + + + | MUCUS UA | Present (A) | Negative /LPF | [facility] | | | | | | [facility] | | | | | | MEDICAL | | | | | | CENTER - | | | | | | LABORATORY | | + + + + + + | HYALINE | 0-2 | 0 - 2 /LPF | [facility] | | | CASTS UA | | | [facility] | | | | | | [facility] | | | | | | CENTER - | | | | | | LABORATORY | | + + + + + + | URINE | Urine Culture Set Up | | [facility] | | | COMMENT | | [facility] | | | | | [facility] | | | | | | C[facility] - | | | | | | LABORATORY | | + + + + + + + + | Specimen | + + | Urine - Urine | | specimen obtained by | | clean catch | | procedure (specimen) | + + + + + + + | Performing | Address | City/State/Zipcode | Phone Number | | Organization | | | | + + + + + | [facility] | [address] | [place] | [phone] | | [facility] | | [address] | | | - LABORATORY | | | | + + + + + POCT Urinalysis Dipstick Automated (01/05/2019 3:50 PM PST) + + + + + + | Component | Value | Ref Range | Performed | Pathologist | | | | | At | Signature | + + + + + + | Color, UA, | Dark Yellow (A) | Yellow, Light | | | | POC | | Yellow | | | + + + + + + | Clarity, | Slightly Cloudy | | | | | UA, POC [...] + + + + | Specific | 1.025 | 1.001 - 1.030 | | | | [place], | | | | | | UA, POC | | | | | + + + + + + | Blood, UA, | Negative | Negative | | | | POC | | | | | + + + + + + | pH, UA, POC | 5.5 | 5.0, 6.0, 7.0, | | | | | | 8.0, 5.5, 6.5, | | | | | | 7.5 | | | + + + + + + | Protein, | Negative | Negative | | | | UA, POC | | | | | + + + + + + | Urobilinoge | 0.2 | 0.2, Negative, | | | | n, UA, POC | | Normal, < 0.2 | | | | | | mg/dL, 1 mg/dL, | | | | | | < 0.2 E.U./dl, | | | | | | 1.0 E.U./dL, | | | | | | 0.2 mg/dL | | | + + + + + + | Nitrite, | Positive (A) | Negative | | | | UA, POC | | | | | + + + + + + | Leukocyte | Trace (A) | Negative | | | | Esterase, [...] + + | Urine | + + IMAGING REPORT - EXTERNAL SCAN (01/05/2019 12:00 AM PST) + + + | Narrative | Performed At | + + + | Ordered by an | | | unspecified provider. | | + + + documented in this encounter Visit Diagnoses + + | Diagnosis | + + | Recurrent UTI - Primary Urinary tract infection, site not specified | + + | Pyuria Other nonspecific finding on examination of urine | + + | Bladder pain Other symptoms involving urinary system | + + | Dysuria | + + documented in this encounter
--- OUTSIDE RECORDS SUMMARY | ~2019-10-26 | XMS | Encounter Summary ---
Demographics + + + | Address | [address] | | | [place] [address] | + + + | Home Phone | | + + + | Preferred Language | Unknown | + + + | Marital Status | | + + + | Church Affiliation | Unknown | + + + | Race | Unknown | + + + | Ethnic Group | Unknown | + + + Author + + + | Author | [facility] | | | and [place] | + + + | Organization | [facility] | | | and [place] [...] Team Providers + +------+ + | Care Veneer Cutter Name | Role | Phone | + +------+ + | Lai Ibarra DO | PCP | | + +------+ + Reason for Visit +---------+ + | Reason | Comments | +---------+ + | Results | | +---------+ + Encounter Details +--------+ + + + + | Date | Type | Department | Care Team | Description | +--------+ + + + + | 01/10/ | Telephone | [facility] | RomyBalbina brannonshua | Results | | 2019 | | [address] | MD Claudia [address] | | | | | [place], [place] | [place], [place] | | | | | [address] | [address] | | | | | [phone] | | | +--------+ + + + [...]
--- OUTSIDE RECORDS SUMMARY | ~2019-10-26 | XMS | Encounter Summary ---
Demographics + + + | Address | [address] | | | [place] [address] | + + + | Home Phone | | + + + | Preferred Language | Unknown | + + + | Marital Status | | + + + | Buddhism Affiliation | Unknown | + + + | Race | Unknown | + + + | Ethnic Group | Unknown | + + + Author + + + | Author | [facility] | | | and [place] | + + + | Organization | [facility] | | | and [place] [...] Team Providers + +------+ + | Care Density Control Puncher Name | Role | Phone | + +------+ + PCP | Unavailable | + +------+ + Encounter Details +--------+ + + + + | Date | Type | Department | Care Team | Description | +--------+ + + + + | 02/02/ | Hospital | [facility] | Asif Raygoza E, | | | 2006 | Encounter | MED [facility] | MD [address] [facility] | | | | | [address] | [place] | | | | | [place] | [address] | | | | | [address] | | | | | | [phone] | | | +--------+ + + + [...]
--- OUTSIDE RECORDS SUMMARY | ~2019-10-26 | XMS | Encounter Summary ---
Demographics + + + | Address | [address] | | | [place] [address] | + + + | Home Phone | | + + + | Preferred Language | Unknown | + + + | Marital Status | | + + + | Zoroastrianism Affiliation | Unknown | + + + | Race | Unknown | + + + | Ethnic Group | Unknown | + + + Author + + + | Author | [facility] | | | and [place] | + + + | Organization | [facility] | | | and [place] | [...] Team Providers + +------+ + | Care French Lecturer Name | Role | Phone | + +------+ + PCP | Unavailable | + +------+ + Encounter Details +--------+ + + + + | Date | Type | Department | Care Team | Description | +--------+ + + + + | 04/13/ | Hospital | [facility] | Kiran Martinez, | | | 1999 - | Encounter | [facility] | [address] | | | | | [facility] [address] | [address] | | | 04/16/ | | [address] [place], | [place] [address] | | | 1997 | | [place] [address] | [phone] | | | | | [phone] | | | +--------+ + + + [...]
--- OUTSIDE RECORDS SUMMARY | ~2019-10-26 | XMS | Encounter Summary ---
Demographics + + + | Address | [address] | | | [place] [address] | + + + | Home Phone | | + + + | Preferred Language | Unknown | + + + | Marital Status | | + + + | Yarsanism Affiliation | Unknown | + + + | Race | Unknown | + + + | Ethnic Group | Unknown | + + + Author + + + | Author | [facility] | | | and [place] | + + + | Organization | [facility] | | | and [place] [...] Team Providers + +------+ + | Care Research Environmental Engineer Name | Role | Phone | + +------+ + | Lai Ibarra DO | PCP | | + +------+ + Reason for Visit + + + | Reason | Comments | + + + | New Patient | new patient due to time, bilateral knee pain , previous surgery | | | on both knees callum Raygoza | + + + Evaluate & Treat (Routine) +--------+--------+ + + + + | Status | Reason | Specialty | Diagnoses / | Referred By | Referred To | | | | | Procedures | Contact | Contact | +--------+--------+ + + + + | Closed | | Orthopedic | Diagnoses | Fred, | Jaret | | | | Surgery | Primary | Lai Brennan DO | Asif Wiseman [place] | | | | | localized | [address] | [address] [place] [address] | | | | | osteoarthros | [address] | [place], | | | | | is, lower | [address] | [place] [address] | | | | | leg | [address] | Phone: | | | | | | [place] | [phone] | | | | | | [address] | Fax: | | | | | | Phone: | [phone] | | | | | | [phone] | | | | | | | Fax: | | | | | | | [phone] | | +--------+--------+ + + + + Encounter Details +--------+---------+ + + + | Date | Type | Department | Care Team | Description | +--------+---------+ + + + | 08/22/ | Office | [facility] | Asif Raygoza, | Primary | | 2014 | Visit | ORTHOPEDIC SURGERY | MD [place] | osteoarthritis of | | | | [address] [place] [address] | [place] | right knee (Primary | | | | [place] | [address] | Dx) | | | | [address] | | | | | | [phone] | | | +--------+---------+ + + + [...] + + + | Blood Pressure | - | - | | + + + + + | Pulse | - | - | | + + + + + | Temperature | 36.3 C (97.4 F) | 08/22/2015 2:19 PM | | | | | PDT | | + + + + + | Respiratory Rate | - | - | | + + + + + | Oxygen Saturation | - | - | | + + + + + | Inhaled Oxygen | - | - | | | Concentration | | | | + + + + + | Weight | 96.6 kg (213 lb) | 08/22/2015 2:19 PM | | | | | PDT | | + + + + + | Height | 172.7 cm (5' 8") | 08/22/2015 2:19 PM | | | | | PDT | | + + + + + | Body Mass Index | 32.39 | 08/22/2015 2:19 PM | | | | | PDT | | + + + + + documented in this encounter Progress Notes Asif Raygoza MD - 08/23/2015 1:32 PM PDTFormatting of this note might be different fro m the original. History of present illness: Karissa is a 65 y.o. 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 No current facility-administered medications on file prior to visit. Family History Problem Relation Age of Onset Multiple Sclerosis Mother Diabetes Sister History Social History Marital Status: Spouse Name: N/A Number of Children: N/A Years of Education: N/A Occupational History Not on file. Social History Main Topics Smoking status: Never Smoker Smokeless tobacco: Not on file Alcohol Use: Not on file Drug Use: Not on file Sexual Activity: Not on file Other Topics Concern Not on file Social History Narrative Review of Systems Eyes: [] Double vision [x] Glasses/contacts [] Failing vision Ear/Nose/Throat: [] Frequent Colds [] Sinus Disease [] Nose obstruction [] Sneezing Spells [] Change in taste [] Artificial teeth [] Ears ringing [] Ear pain [] Hearing loss [] Teeth problems [] Hoarseness [] Neck swelling [] Sore throat [] Congestion [] Nosebleeds [] Nasal allergies Respiratory: [] Asthma/Wheezing [] Pneumonia [] Night sweats [] Shortness of breath [] Chronic cough [] Coughing up blood [] Exposure to tuberculosis Cardiovascular: [] Heart Problems [] Hypertension [] Heart murmur [] Palpitations [] Rheumatic fever [] Phlebitis [] Chest pain [] Ankle swelling [] Leg cramps [] Racin g heart [] Skipping beats [] Blood clots Gastrointestinal: [] Abdominal pain [] Heartburn [] Blood from rectum [] Colitis [] Gallbladder problems [] Troubl e swallowing [] Bloated stomach [] Change in stools [] Vomiting blood [] Nausea [] Hemorrhoids [] Jaundice [ ] Hepatitis [] Diarrhea [] Constipation [] Diverticulitis Urinary Tract: [] Painful urination [] Kidney Stones [x] Any urine leakage [] Weak urine stream [] Night urination [] Urine infections [] Bedwetting [] Blood in urine Skin: [] Skin rashes [] Itching/Burning [] Skin bruises easil y [] Artificial tanning [] Skin cancer [] Hair loss [] Changes in moles Musculoskeletal: [] Physical handicaps [] Back or shoulder pain []Rheumatoid disease [] Osteoarthritis [] Joint pain [] Joint swelling []Gout [] Leg cramps at night Neurological: [] Headaches [] Seizures [] Stroke/TIA [] Faintness [] Tremors [] Numbness [] Dizziness [] Changes in handwriting [] Memory loss [] Shooting pains Psychiatric: [] Depression [] Suicidal thoughts [] Sleep pattern changes [] Appetite changes [] Recent counseling [] Nervousness/anxiety [] Physical violence [] Marital problems Endocrine: [] Thyroid [] Diabetes Systemic: []Weight loss/gain (over 10 lbs) []Fever/chills []Fatigue [x] Sleeping Difficulties [] Speech change [] Voice change Filed Vitals: 08/22/15 1419 Temp: 36.3 C (97.4 F) PainSc: 4 PainLoc: Knee Estimated body mass index is 32.39 kg/(m^2) as calculated from the following: Height as of this encounter: 1.727 m (5' 8"). Weight as of this encounter: 96.616 kg (213 lb). Physical examination:Patient is alert and oriented and in no acute distress. Exam of her right knee shows medial and lateral joint line tenderness She has audible and palpable crepitus with range of motion 10 flexion contracture Negative Jarrell negative pivot shift Skin without rashes or skin lesions Mild joint effusion today Distally she has intact pedal pulses Assessment:X-rays reviewed by me and show severe and advanced [id number] osteoarthritis o f the right knee Plan:The natural history and treatment options are discussed at length on today's visit She feels that she is headed for knee replacement surgery and so we spent some time discuss ing that today The other conservative measures are discussed She'll let us know when she reaches the end of her ability to cope The above note was dictated using [employer] voice recognition software. It may have not been p roofread in entirety. Minor errors in grammar may occur. documented in this en counter Plan of Treatment Not on filedocumented as of this encounter Visit Diagnoses + + | Diagnosis | + + | Primary osteoarthritis of right knee - Primary Primary localized osteoarthrosis, | | lower leg | + + documented in this encounter
--- OUTSIDE RECORDS SUMMARY | ~2019-10-26 | XMS | Clinical Summary ---
Demographics + + + | Address | [address] | | | [place] [address] | + + + | Home Phone | | + + + | Preferred Language | Unknown | + + + | Marital Status | Unknown | + + + | Mandaen Affiliation | Unknown | + + + | Race | Unknown | + + + | Ethnic Group | Unknown | + + + Author + + + | Author | [facility] (Historical as of | | | 06-25-19) | + + + | Organization | [facility] (Historical as of | | | 06-25-19) | + + + | Address | Unknown | + + + | Phone | Unavailable | + + + Care Team Providers + +------+ + | Care Monument Setter Helper Name | Role | Phone | + [...] +------+-------+ + | MEDICARE | MEDICA | [id number] | | | [address] | | | RE | | | | [place] [address] | | | IP-OP | | | [...] | Self | [birth year] | Home: | [address] | | | al/Fam | | 1949 | [phone] [place] [address] | | | [place]oke | | | [phone] | | + +--------+ +--------+ + +"
--- OUTSIDE RECORDS SUMMARY | ~2019-10-26 | XMS | Encounter Summary ---
Demographics + + + | Address | [address] | | | [place] [address] | + + + | Home Phone | | + + + | Preferred Language | Unknown | + + + | Marital Status | | + + + | Druze Affiliation | Unknown | + + + | Race | Unknown | + + + | Ethnic Group | Unknown | + + + Author + + + | Author | [facility] | | | and [place] | + + + | Organization | [facility] | | | and [...] Team Providers + +------+ + | Care Senior Safety Management Consultant Name | Role | Phone | + +------+ + PCP | Unavailable | + +------+ + Encounter Details +--------+ + + + + | Date | Type | Department | Care Team | Description | +--------+ + + + + | 06/21/ | Hospital | [facility] | | | | 2001 | Encounter | MED CTR MP INTRA OP | | | | | | [address] | | | | | | [place] | | | | | | [address] | | | | | | [phone] | | | +--------+ + + + [...]
--- OUTSIDE RECORDS SUMMARY | ~2019-10-26 | XMS | Encounter Summary ---
Demographics + + + | Address | [address] | | | [place] [address] | + + + | Home Phone | | + + + | Preferred Language | Unknown | + + + | Marital Status | | + + + | Hoahaoism Affiliation | Unknown | + + + | Race | Unknown | + + + | Ethnic Group | Unknown | + + + Author + + + | Author | [facility] | | | and Tioana | + + + | Organization | [facility] | | | and [...] Team Providers + +------+ + | Care Painter Name | Role | Phone | + +------+ + PCP | Unavailable | + +------+ + Encounter Details +--------+ + + + + | Date | Type | Department | Care Team | Description | +--------+ + + + + | 05/29/ | Hospital | [facility] | Asif Raygoza, | | | 2005 | Encounter | MED CTR XRAY [address] | [address] [facility] | | | | | [address] | [place] | | | | | [place] [address] | [address] | | | | | [phone] | | | +--------+ + + + [...]
--- OUTSIDE RECORDS SUMMARY | ~2019-10-26 | XMS | Encounter Summary ---
Demographics + + + | Address | [address] | | | [place] [address] | + + + | Home Phone | | + + + | Preferred Language | Unknown | + + + | Marital Status | | + + + | Yazdanism Affiliation | Unknown | + + + | Race | Unknown | + + + | Ethnic Group | Unknown | + + + Author + + + | Author | [facility] | | | and [place] | + + + | Organization | [facility] | | | and [place] [...] Team Providers + +------+ + | Care Stringing Machine Tender Name | Role | Phone | + +------+ + | Lai Ibarra DO | PCP | | + +------+ + Encounter Details +--------+ + + + + | Date | Type | Department | Care Team | Description | +--------+ + + + + | 08/22/ | [facility] | [facility] | Asif Raygoza, | Bilateral knee pain | | 2015 | Encounter | MED CTR [address] XRAY | [address] | | | | | [address] | [place] | | | | | [place] | [address] | | | | | [address] | | | | | | [phone] | | | +--------+ + + + [...] | [address] | [address] | [place] | [phone] | | [facility] | | [address] | | | - IMAGING | | [...] [address] | [place] | [phone] | | [facility] | | [address] | | | - IMAGING | | | | + + + + + documented in this encounter Visit Diagnoses + + | Diagnosis | + + | Bilateral knee pain Pain in joint, lower leg | + + documented in this encounter"
--- OUTSIDE RECORDS SUMMARY | ~2019-10-26 | XMS | Encounter Summary ---
Demographics + + + | Address | [address] | | | [place] [address] | + + + | Home Phone | | + + + | Preferred Language | Unknown | + + + | Marital Status | | + + + | Gnosticism Affiliation | Unknown | + + + | Race | Unknown | + + + | Ethnic Group | Unknown | + + + Author + + + | Author | [facility] | | | and [place] | + + + | Organization | [facility] | | [...] Team Providers + +------+ + | Care Youth Services Specialist Name | Role | Phone | + +------+ + PCP | Unavailable | + +------+ + Encounter Details +--------+ + + + + | Date | Type | Department | Care Team | Description | +--------+ + + + + | 02/02/ | Hospital | [facility] | Asif Raygoza E, | | | 2006 | Encounter | MED CTR MP INTRA OP | MD [address] [facility] | | | | | [address] | [place] | | | | | [place] | [address] | | | | | [address] | | | | | | [phone] | | | +--------+ + + + [...]
--- OUTSIDE RECORDS SUMMARY | ~2019-10-26 | XMS | Encounter Summary ---
Demographics + + + | Address | [address] | | | [place] [address] | + + + | Home Phone | | + + + | Preferred Language | Unknown | + + + | Marital Status | | + + + | Lutheran Affiliation | Unknown | + + + | Race | Unknown | + + + | Ethnic Group | Unknown | + + + Author + + + | Author | [facility] | | | and [place] | + + + | Organization | [facility] | | | and [...] Team Providers + +------+ + | Care Three Dimensional Art Instructor Name | Role | Phone | + +------+ + PCP | Unavailable | + +------+ + Encounter Details +--------+ + + + + | Date | Type | Department | Care Team | Description | +--------+ + + + + | 06/07/ | Hospital | [facility] | | | | 2002 | Encounter | MED CTR XRAY [address] | | | | | | [address] [place] | | | | | | [place] [address] | | | | | | [phone] | | | +--------+ + + + [...]
--- OUTSIDE RECORDS SUMMARY | ~2019-10-26 | XMS | Encounter Summary ---
Demographics + + + | Address | [address] | | | [place] [address] | + + + | Home Phone | | + + + | Preferred Language | Unknown | + + + | Marital Status | | + + + | Judaism Affiliation | Unknown | + + + | Race | Unknown | + + + | Ethnic Group | Unknown | + + + Author + + + | Author | [facility] | | | and [place]io[place] | + + + | Organization | [facility] | | [...] Team Providers + +------+ + | Care Mining Detail Draftsperson Name | Role | Phone | + +------+ + PCP | Unavailable | + +------+ + Encounter Details +--------+ + + + + | Date | Type | Department | Care Team | Description | +--------+ + + + + | 05/29/ | Hospital | [facility] | Asif Raygoza, | | | 2005 | Encounter | MED CTR XRAY [address] | [address] [facility] | | | | | [address] | [place] | | | | | [place] [address] | [address] | | | | | [phone] | | | +--------+ + + + [...]
--- OUTSIDE RECORDS SUMMARY | ~2019-10-26 | XMS | Clinical Summary ---
Demographics + + + | Address | [address] | | | [place] [address] | + + + | Home Phone | | + + + | Preferred Language | Unknown | + + + | Marital Status | | + + + | Mormonism Affiliation | Unknown | + + + | Race | Unknown | + + + | Ethnic Group | Unknown | + + + Author + + + | Author | [facility] | | | and Tioana | + + + | Organization | [facility] | | [...] Team Providers + +------+ + | Care Sanitor Name | Role | Phone | + [...] +--------+ +---------+--------+ | MEDICARE | MEDICA | [id number] | 03/09/20 | [phone] | | Medica | | | RE | | 17-Pre | 5 | | re | | | PART A | | sent | | | | | | AND B | | | | | | + +--------+ +--------+ +---------+--------+ | [employer] | [employer] | [id number] | | | | Indemn | | [...] Person | Self | [birth year] | [address] | | | al/Fam | | 1950 | [phone] | [place] [address] | | | [place] | | | 0 (Home) | | + +--------+ +--------+ + + Advance Directives + + + + + | Type | Date Recorded | Patient | Explanation | | | | Flakeboard Line Tender | | + + + + + | Power of | | | | | Filler Sifter Helper | | | | + + + + + | Advance | 08/22/2015 | | | | Directive | 1:48 PM | | | + + + + +
--- OUTSIDE RECORDS SUMMARY | ~2019-10-26 | XMS | Encounter Summary ---
Demographics + + + | Address | [address] | | | [place] [address] | + + + | Home Phone | | + + + | Preferred Language | Unknown | + + + | Marital Status | | + + + | Baptism Affiliation | Unknown | + + + | Race | Unknown | + + + | Ethnic Group | Unknown | + + + Author + + + | Author | [facility] | | | and [place] | + + + | Organization | [facility] | | | and [place] [...] Team Providers + +------+ + | Care Seismograph Operator Name | Role | Phone | [...] | | | | | tract | [address] | | | | | infection | [address] | [place], | | | | | | [place] | [place] [address] | | | | | | [address] | Phone: | | | | | | [place], [place] | [phone] | | | | | | [address] | Fax: | | | | | | Phone: | [phone] | | | | | | [phone] | | | | | | | Fax: | | | | | | | [phone] | | +--------+--------+ + + + + [...] | infection without | | | | [place], [place] | [place], [place] | hematuria, site | | | | [address] | [address] | unspecified (Primary | | | | [phone] | | Dx); Recurrent UTI; | | [...] of urinary tract infections. There are several dket-vvj-xpcvhfw medications that can decrease her risk of [...] b ilateral upper and lower extremities Data: [place] 78 mL-slightly elevated, but not worrisome REVIEW [...] UA, POC Negative Negative, 100 mg/dL Specific [place], UA, POC 1.015 1.001 - 1.030 Blood, [...] have not thoroughly proofread this note, and cloth grader errors are very likely to occur. CC: [...] 1.001 - 1.030 | | | | [place], | | | | | | UA, [...]
--- OUTSIDE RECORDS SUMMARY | ~2019-10-26 | XMS | Encounter Summary ---
Demographics + + + | Address | [address] | | | [place] [address] | + + + | Home Phone | | + + + | Preferred Language | Unknown | + + + | Marital Status | | + + + | Evangelical Affiliation | Unknown | + + + | Race | Unknown | + + + | Ethnic Group | Unknown | + + + Author + + + | Author | [facility] | | | and [place] | + + + | Organization | [facility] | | | and [place] | [...] Team Providers + +------+ + | Care Pharmacy Tech Name | Role | Phone | + [...] | | | | | localized | [address] | [address] [place] [address] | | | | | osteoarthros | [address] | [place], | | | | | is, lower | [address] | [place] [address] | | | | | leg | [address] | Phone: | | | | | | [place] | [phone] | | | | | | [address] | Fax: | | | | | | Phone: | [phone] | | | | | | [phone] | | | | | | | Fax: | | | | | | | [phone] | | +--------+--------+ + + + + Encounter Details +--------+---------+ + + + | Date | Type | Department | Care Team | Description | +--------+---------+ + + + | 08/22/ | Office | [facility] | Asif Raygoza, | Primary | | 2014 | Visit | ORTHOPEDIC SURGERY | MD [place] | osteoarthritis of | | | | [address] [place] [address] | [place] | right knee (Primary | | | | [place] | [address] | Dx) | | | | [address] | | | | | | [phone] | | | +--------+---------+ + + + [...] by me and show severe and advanced yyuf-py-hvnq osteoarthritis o f the right knee Plan:The [...] cope The above note was dictated using Aramsco voice recognition software. It may have not [...]
--- OUTSIDE RECORDS SUMMARY | ~2019-10-26 | XMS | Encounter Summary ---
Demographics + + + | Address | [address] | | | [place] [address] | + + + | Home Phone | | + + + | Preferred Language | Unknown | + + + | Marital Status | | + + + | Baptist Affiliation | Unknown | + + + | Race | Unknown | + + + | Ethnic Group | Unknown | + + + Author + + + | Author | [facility] | | | and [place]io[place] | + + + | Organization | [facility] | | | and [place] | [...] Team Providers + +------+ + | Care Temporary Staff Accountant Name | Role | Phone | + [...] | 10// | Telephone | [facility] | Cole Her | Appointment | | 2018 | | [address] | MD Claudia [address] | | | | | [place], [place] | [place], [place] | | | | | [address] | [address] | | | | | [phone] | | | +--------+ + + + [...]
--- OUTSIDE RECORDS SUMMARY | ~2019-10-26 | XMS | Encounter Summary ---
Demographics + + + | Address | [address] | | | [place] [address] | + + + | Home Phone | | + + + | Preferred Language | Unknown | + + + | Marital Status | | + + + | Mormon Affiliation | Unknown | + + + | Race | Unknown | + + + | Ethnic Group | Unknown | + + + Author + + + | Author | [facility] | | | and [place] | + + + | Organization | [facility] | | | and [place] [...] Team Providers + +------+ + | Care Wood Treating Inspector Name | Role | Phone | + [...] + | 01/10/ | Telephone | [facility] | RomyBalbina brannonshua | Results | | 2019 | | [address] | MD Claudia [address] | | | | | [place], [place] | [place], [place] | | | | | [address] | [address] | | | | | [phone] | | | +--------+ + + + [...]
--- OUTSIDE RECORDS SUMMARY | ~2019-10-26 | XMS | Encounter Summary ---
Demographics + + + | Address | [address] | | | [place] [address] | + + + | Home Phone [...] Author | [facility] | | | and [place] | + + + | Organization | [facility] | | | and [place] [...] Team Providers + +------+ + | Care Machine Greaser Name | Role | Phone | + [...] + + | 01/05/ | Office | [facility] | Cole Her | Recurrent UTI | | 2019 | Visit | [address] | MD Claudia [address] | (Primary Dx); | | | | [place], [place] | [place] | Pyuria; Bladder | | | | [address] | [address] | pain; Dysuria | | | | [phone] | | | +--------+---------+ + + + [...] b ilateral upper and lower extremities Data: [place] 78 mL-slightly elevated, but not worrisome Results [...] UA, POC Negative Negative, 100 mg/dL Specific [place], UA, POC 1.025 1.001 - 1.030 Blood, [...] have not thoroughly proofread this note, and consumer educator errors are very likely to occur. CC: [...] + | [facility] | [address] | [place] | [phone] | | [facility] | | [address] | | | - LABORATORY | | [...] [address] | [place] | [phone] | | [facility] | | [address] | | | - LABORATORY | | [...] 1.001 - 1.030 | | | | [place], | | | | | | [...]
[~2019-10-26 18:54] MED LIST: BYSTOLIC10 MG PO; HYDROCODON-ACE1 EAC8 PO; LIPITOR20 MG PO; ZOLOFT100 MG PO
--- OUTSIDE RECORDS SUMMARY | 2019-10-26 18:58 | XMS ---
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 Sonya has no Care Guidelines for this patient. Mara VISIT COUNT (12 MO.) 1 KESHAV Roque TOTAL 1 NOTE: Visits indicate total known visits. ED/C VISIT TRACKING (12 MO.) 10/26/2019 18:55 KESHAV Marr [place] TYPE: Emergency COMPLAINT: - HIGH BLOOD PRESSURE/CHEST PAIN INPATIENT VISIT TRACKING (12 MO.) No inpatient visits to display in this time frame [email or web address]
[2019-10-26] MEDS ORDERED: HYDROCHLOROTH12.5 MG PO (19:10)
--- NOTE | 2019-10-27 15:52 | EKG ---
[facility] [address] [facility] [place], [place] [address] Signed Normal sinus rhythm Normal ECG No previous ECGs available Confirmed by TYLER SOTELO DO ([id number]) on 10/27/2019 3:51:43 PM Electronically Signed By: TYLER SOTELO DO 10/27/19 1552 PATIENT NAME: JACOB MATHEW Electrocardiogram DATE OF : 54 PHYSICIAN: TYLER SOTELO DO REPORT #: [id number] REPORT IS CONFIDENTIAL AND NOT TO BE RELEASED WITHOUT AUTHORIZATION
== END 2019-10-26 23:00 | disposition home or self-care (01) ==
LOC: ED 18:54
DX: I10 Essential (primary) hypertension (principal); E78.00 Pure hypercholesterolemia, unspecified; Z79.899 Other long term (current) drug therapy; Z79.891 Long term (current) use of opiate analgesic
CPT/HCPCS: 71045; 80053; 83735; 84484; 85025; 93005; 93010; 99285-25